=== PATIENT | female | born 1970 | race Caucasian/White ===

== ENCOUNTER → 2017-11-11 | Outpatient (CLI) | payer OTHER ==
[~2017-11-11] MED LIST: IBUPROFEN 800800 M1; ZOFRAN ODT4 MG PO; ZOLOFT100 MG
== END ==
LOC: M.RAD 11-10 07:50 → M.ULTRA 11-10 08:00 → M.RAD 11-10 09:20
DX: Z12.31 Encounter for screening mammogram for malignant neoplasm of breast (principal); N60.01 Solitary cyst of right breast; N60.02 Solitary cyst of left breast

== ENCOUNTER → 2018-11-24 | Outpatient (CLI) | payer OTHER | LOC: M.RAD 11-02 16:52 | DX: Z12.31 Encounter for screening mammogram for malignant neoplasm of breast (principal); N60.01 Solitary cyst of right breast; N60.02 Solitary cyst of left breast ==